=== PATIENT | female | born 1955 | race Asian ===

== ENCOUNTER 2019-05-31 06:20 | Emergency (ER) | payer OTHER ==
[~2019-05-31] VITALS: Ht 167.6 cm; Wt 97.1 kg
[2019-05-31 06:20] VITALS: TEMP 97.7
[2019-05-31 10:40] VITALS: BP 115/69
== END 2019-05-31 10:40 | disposition home or self-care (01) ==
LOC: ED 06:20
DX: M17.0 Bilateral primary osteoarthritis of knee (principal); M54.5 Low back pain; G89.29 Other chronic pain; M25.551 Pain in right hip; M25.561 Pain in right knee; Z96.651 Presence of right artificial knee joint; W06.XXXA Fall from bed, initial encounter; Y92.89 Other specified places as the place of occurrence of the external cause
CPT/HCPCS: 96372; 99283; J1885